=== PATIENT | female | born 1950 | race Caucasian/White ===

== ENCOUNTER → 2016-07-10 | Day surgery (SDC) | payer MEDICARE, SELFPAY ==
[~2016-07-10] VITALS: Ht 165.1 cm; Wt 73.0 kg
[~2016-07-10] MED LIST: ASPIRIN325 MG PO; CARAFATE 1 GM TA1 GM PO; CARDURA 2MG TAB2 MG PO; FUROSEMIDE40 MG PO; GLUCOTROL 10 MG10 MG PO; HYDRALAZINE HCL50 MG PO; IMODIUM CAP 2 MG2 MG PO; K-DUR TAB 20 M20 MEQ PO; LAMICTAL25 MG PO; LISINOPRIL40 MG PO; MEDROL4 MG PO; METFORMIN HCL1000 MG PO; MOBIC7.5 MG PO; NORVASC 5 MG TAB5 MG PO; PROTONIX40 MG PO; SYMBICORT 16010.2 GM INH; TENORMIN 50 MG50 MG PO; ZANTAC150 MG PO; ZYPREXA10 MG PO
== END | disposition home or self-care (01) ==
LOC: OR 07:10
PROVIDERS: Internal Medicine Gastroenterology
PROC: 0DB68ZX Excision of Stomach, Via Natural or Artificial Opening Endoscopic, Diagnostic (ICD-10-PCS; principal; 2016-07-10 12:15)
DX: K29.50 Unspecified chronic gastritis without bleeding (principal); K44.9 Diaphragmatic hernia without obstruction or gangrene; K21.9 Gastro-esophageal reflux disease without esophagitis; I10 Essential (primary) hypertension; E11.9 Type 2 diabetes mellitus without complications; I73.9 Peripheral vascular disease, unspecified; J44.9 Chronic obstructive pulmonary disease, unspecified; G89.29 Other chronic pain; M54.9 Dorsalgia, unspecified; M19.90 Unspecified osteoarthritis, unspecified site; F41.9 Anxiety disorder, unspecified; F17.210 Nicotine dependence, cigarettes, uncomplicated; Z82.49 Family history of ischemic heart disease and other diseases of the circulatory system; Z88.0 Allergy status to penicillin; Z95.810 Presence of automatic (implantable) cardiac defibrillator; Z90.49 Acquired absence of other specified parts of digestive tract; Z90.710 Acquired absence of both cervix and uterus
CPT/HCPCS: 82962; J2250; J3010; J7030

== ENCOUNTER 2016-07-24 15:06 | Emergency (ER) | payer MEDICARE, SELFPAY ==
[~2016-07-24 15:06] MED LIST changes: -ASPIRIN325 MG PO; -MEDROL4 MG PO; -MOBIC7.5 MG PO
[2016-08-09] MEDS ORDERED: ASPIRIN325 MG PO (08:52)
[2016-08-09] MEDS ORDERED: MOBIC7.5 MG PO (08:52)
[2016-08-09] MEDS ORDERED: MEDROL4 MG PO (08:53)
== END 2016-07-24 16:28 | disposition home or self-care (01) ==
LOC: ER1 15:06
DX: J40 Bronchitis, not specified as acute or chronic (principal); I10 Essential (primary) hypertension; E11.9 Type 2 diabetes mellitus without complications; F17.210 Nicotine dependence, cigarettes, uncomplicated; Z88.0 Allergy status to penicillin; Z90.49 Acquired absence of other specified parts of digestive tract
CPT/HCPCS: 87081; 87880; 99283

== ENCOUNTER → 2016-08-09 | Day surgery (SDC) | payer MEDICARE, SELFPAY ==
[~2016-08-09] VITALS: Ht 165.1 cm; Wt 73.0 kg
[~2016-08-09] MED LIST changes: +ASPIRIN325 MG PO; +MEDROL4 MG PO; +MOBIC7.5 MG PO
== END | disposition home or self-care (01) ==
LOC: OR 07:51
PROVIDERS: Internal Medicine Gastroenterology
PROC: 0DJD8ZZ Inspection of Lower Intestinal Tract, Via Natural or Artificial Opening Endoscopic (ICD-10-PCS; principal; 2016-08-09 12:30)
DX: K52.9 Noninfective gastroenteritis and colitis, unspecified (principal); F17.210 Nicotine dependence, cigarettes, uncomplicated; E11.9 Type 2 diabetes mellitus without complications; I10 Essential (primary) hypertension; Z88.0 Allergy status to penicillin; Z87.19 Personal history of other diseases of the digestive system; M19.90 Unspecified osteoarthritis, unspecified site; Z86.69 Personal history of other diseases of the nervous system and sense organs; Z90.710 Acquired absence of both cervix and uterus; Z90.49 Acquired absence of other specified parts of digestive tract; Z98.49 Cataract extraction status, unspecified eye; Z95.0 Presence of cardiac pacemaker; Z79.891 Long term (current) use of opiate analgesic; Z79.82 Long term (current) use of aspirin; Z79.899 Other long term (current) drug therapy
CPT/HCPCS: J2250; J7030

== ENCOUNTER → 2016-08-21 | Outpatient (CLI) | payer MEDICARE, SELFPAY | LOC: HEART 5 15:34 | DX: I25.10 Atherosclerotic heart disease of native coronary artery without angina pectoris (principal); R93.8 Abnormal findings on diagnostic imaging of other specified body structures; R27.0 Ataxia, unspecified; I70.212 Atherosclerosis of native arteries of extremities with intermittent claudication, left leg; R07.89 Other chest pain; Z95.810 Presence of automatic (implantable) cardiac defibrillator; I42.2 Other hypertrophic cardiomyopathy; J44.9 Chronic obstructive pulmonary disease, unspecified; F17.210 Nicotine dependence, cigarettes, uncomplicated; R94.2 Abnormal results of pulmonary function studies | CPT/HCPCS: 94060 ==

== ENCOUNTER → 2016-09-10 | Outpatient (CLI) | payer MEDICARE | LOC: CT 14:17 | DX: F17.210 Nicotine dependence, cigarettes, uncomplicated (principal) | CPT/HCPCS: G0297 ==

== ENCOUNTER → 2016-09-25 | Outpatient (CLI) | payer MEDICARE | LOC: CT 09-24 10:30 | DX: R10.11 Right upper quadrant pain (principal); K55.9 Vascular disorder of intestine, unspecified; K59.09 Other constipation | CPT/HCPCS: 36415; 82565; 84520; Q9963 ==

== ENCOUNTER → 2016-10-10 | Outpatient (CLI) | payer MEDICARE, OTHER | LOC: CT 09-28 08:30 | DX: R10.11 Right upper quadrant pain (principal); K55.9 Vascular disorder of intestine, unspecified; K59.09 Other constipation; N28.1 Cyst of kidney, acquired; I70.8 Atherosclerosis of other arteries | CPT/HCPCS: J7050; Q9963 ==

== ENCOUNTER → 2020-05-27 | Outpatient (CLI) | payer MEDICARE ==
[~2020-05-27] MED LIST changes: +AMIODARONE HCL200 MG PO; +ANTIVERT 12.512.5 MG PO; +ASPIRIN EC81 MG PO; +CARDIZEM CD240 MG PO; +CARDURA4 MG PO; +CEFDINIR300 MG PO; +CEFUROXIME500 MG PO; +COLACE100 MG PO; +COUMADIN 5MG TAB5 MG PO; +COUMADIN5 MG PO; +DOLOBID 500 MG500 MG PO; +DOXAZOSIN MESYLA4 MG PO; +DOXYCYCLINE HY100 MG PO; +ELIQUIS 5 MG TAB5 MG PO; +FEOSOL325 MG PO; +FERROUS SULFAT325 M2 PO; +FLAGYL500 MG PO; +FLEXERIL 10 MG10 MG PO; +FLONASE 0.05% N16 GM; +FLORANEX GRANU1 EACH PO; -FUROSEMIDE40 MG PO; +GLUCOPHAGE XR500 MG PO; +GLUCOPHAGE500 MG PO; -GLUCOTROL 10 MG10 MG PO; +GLUCOTROL5 MG PO; +IPRATROPIU0.2 MG/1 M NEB; +K-TAB ER10 MEQ PO; +K-TAB ER20 MEQ PO; +KLOR-CON M2020 MEQ PO; +LASIX 40 MG TAB40 MG PO; +LASIX20 MG PO; +LASIX40 MG PO; +LEVALBUTER0.63 MG/3 NEB; +LEVAQUIN500 MG PO; +LOPRESSOR 50 MG50 MG PO; +MECLIZINE HCL25 MG PO; +NAPROXEN 250 M250 MG PO; +NICOTINE PATCH1 EAC1 TD; +NICOTINE PATCH1 EAC2 TD; +NITROSTAT 0.40.4 MG SL; +NITROSTAT0.4 MG SL; +NORVASC10 MG PO; +NORVASC5 MG PO; +OMNICEF 300 MG300 MG PO; +PREDNISONE 50 M50 MG PO; +TOUJEO SC; +TYLENOL 500 MG500 MG PO; +TYLENOL325 M1 PO; +TYLENOL325 MG PO; +ULTRACET TABLE1 EACH PO; +ULTRAM50 MG PO; +VANCOMYCIN HCL125 MG PO; +VENTOLIN HFA 66.7 GM INH; +VIBRAMYCIN100 MG PO; +VIBRAMYCIN50 MG/5 ML PO; +ZESTRIL40 MG PO; +ZITHROMAX500 MG PO; +ZOFRAN4 MG PO
[2020-05-27 10:38] LABS: HEMOGLOBIN 9.3 gm/dl (12.3-15.3); RED BLOOD COUNT 3.43 M/UL (4.00-5.10); WHITE BLOOD COUNT 7.2 K/UL (4.5-11.0)
[2020-05-27 11:13] LABS: BUN/CREATININE RATIO 16 (0-10)
[2020-05-28 10:13] LABS: CREATININE, URINE 58.3 mg/dL (Not Estab.)
[2020-05-30 13:10] LABS: CHOLESTEROL, TOTAL 108 mg/dL (100-199); HDL SIZE 9.8 nm (>=9.2); HDL-C 39 mg/dL (>39); HDL-P (TOTAL) 21.7 umol/L (>=30.5); LARGE HDL-P 6.4 umol/L (>=4.8); LARGE VLDL-P 2.7 nmol/L (<=2.7); LDL SIZE 20.2 nm (>20.5); LDL SIZE 20.2 nm (>=20.8); LDL-C 52 mg/dL (0-99); LDL-P 770 nmol/L (<1000); LP-IR SCORE 43 (<=45); SMALL LDL-P 550 nmol/L (<=527); TRIGLYCERIDES 88 mg/dL (0-149); VLDL SIZE 48.8 nm (<=46.6)
== END ==
LOC: LAB 10:15
PROVIDERS: Emergency Medicine
DX: D50.9 Iron deficiency anemia, unspecified (principal); A04.72 Enterocolitis due to Clostridium difficile, not specified as recurrent; E11.65 Type 2 diabetes mellitus with hyperglycemia; E11.69 Type 2 diabetes mellitus with other specified complication; E27.8 Other specified disorders of adrenal gland; E55.9 Vitamin D deficiency, unspecified; E78.2 Mixed hyperlipidemia; F17.218 Nicotine dependence, cigarettes, with other nicotine-induced disorders; F41.1 Generalized anxiety disorder; G25.0 Essential tremor; G44.89 Other headache syndrome; G56.03 Carpal tunnel syndrome, bilateral upper limbs; G89.4 Chronic pain syndrome; H81.13 Benign paroxysmal vertigo, bilateral; H81.393 Other peripheral vertigo, bilateral; H81.4 Vertigo of central origin; H92.02 Otalgia, left ear; H93.13 Tinnitus, bilateral; I25.10 Atherosclerotic heart disease of native coronary artery without angina pectoris; I27.29 Other secondary pulmonary hypertension; I42.2 Other hypertrophic cardiomyopathy; I47.2 Ventricular tachycardia; I48.20 Chronic atrial fibrillation, unspecified; I11.0 Hypertensive heart disease with heart failure; I50.32 Chronic diastolic (congestive) heart failure; I73.89 Other specified peripheral vascular diseases; J01.00 Acute maxillary sinusitis, unspecified
CPT/HCPCS: 36415; 80053; 82043; 82570; 83036; 84443; 84550; 85025

== ENCOUNTER 2020-07-18 12:48 | Emergency (ER) | payer MEDICARE, SELFPAY ==
[~2020-07-18 12:48] MED LIST changes: -FLAGYL500 MG PO; -VIBRAMYCIN50 MG/5 ML PO
== END 2020-07-18 14:35 | disposition home or self-care (01) ==
LOC: ER1 12:48
DX: R07.89 Other chest pain (principal); E11.9 Type 2 diabetes mellitus without complications; J44.9 Chronic obstructive pulmonary disease, unspecified; I11.9 Hypertensive heart disease without heart failure; F17.200 Nicotine dependence, unspecified, uncomplicated; Z90.49 Acquired absence of other specified parts of digestive tract; Z90.89 Acquired absence of other organs; Z90.710 Acquired absence of both cervix and uterus; Z88.0 Allergy status to penicillin
CPT/HCPCS: 71046; 96372; 99284; J1885

== ENCOUNTER 2020-08-08 19:15 | Emergency (ER) | payer MEDICARE, SELFPAY ==
[2020-08-08 21:37] LABS: HEMOGLOBIN 8.7 gm/dl (12.3-15.3); RED BLOOD COUNT 3.28 M/UL (4.00-5.10)
[2020-08-08 22:02] LABS: BUN/CREATININE RATIO 30 (0-10)
[2020-08-09] MEDS ORDERED: OMNICEF 300 MG300 MG PO (01:43)
[2020-08-09] MEDS ORDERED: VIBRAMYCIN100 MG PO (01:43)
[2020-08-09] MEDS ORDERED: FLAGYL500 MG PO (01:43)
== END 2020-08-09 00:14 | disposition left against medical advice (07) ==
LOC: ER1 19:15
PROVIDERS: Emergency Medicine
DX: A41.9 Sepsis, unspecified organism (principal); R65.20 Severe sepsis without septic shock; J18.9 Pneumonia, unspecified organism; I63.9 Cerebral infarction, unspecified; I48.91 Unspecified atrial fibrillation; J44.9 Chronic obstructive pulmonary disease, unspecified; Z20.822 Contact with and (suspected) exposure to COVID-19; I10 Essential (primary) hypertension; F17.210 Nicotine dependence, cigarettes, uncomplicated; E11.9 Type 2 diabetes mellitus without complications; Z88.0 Allergy status to penicillin
CPT/HCPCS: 0240U; 36600; 51701; 70450; 71045; 80053; 81001; 82140; 82550; 82553; 82803; 83605; 83690; 83735; 83874; 83880; 84484; 85025; 87040; 93005; 94664; 96365; 96366; 96368; 96375; 96376; 99285; J0692; J2930; J7030

== ENCOUNTER 2020-08-12 14:44 | Emergency (ER) | payer MEDICARE, SELFPAY ==
[~2020-08-12 14:44] MED LIST changes: +FLAGYL500 MG PO
[2020-08-12 18:09] LABS: BUN/CREATININE RATIO 46 (0-10)
[2020-08-12 18:12] LABS: HEMOGLOBIN 8.3 gm/dl (12.3-15.3); RED BLOOD COUNT 3.26 M/UL (4.00-5.10); WHITE BLOOD COUNT 8.1 K/UL (4.5-11.0)
== END 2020-08-12 23:34 | disposition short-term general hospital (02) ==
LOC: ER1 14:44
PROVIDERS: Preventive Medicine Occupational Medicine
DX: I11.0 Hypertensive heart disease with heart failure (principal); I50.9 Heart failure, unspecified; I48.91 Unspecified atrial fibrillation; E87.6 Hypokalemia; I63.9 Cerebral infarction, unspecified; Z20.822 Contact with and (suspected) exposure to COVID-19; E11.9 Type 2 diabetes mellitus without complications; J44.9 Chronic obstructive pulmonary disease, unspecified; I25.10 Atherosclerotic heart disease of native coronary artery without angina pectoris
CPT/HCPCS: 0240U; 36600; 70450; 71045; 80053; 81001; 82550; 82553; 82803; 83605; 83690; 83735; 83874; 83880; 84484; 85025; 85610; 85652; 85730; 86140; 87086; 93005; 96365; 96375; 96376; 99285; J1335; J3480; J7030

== ENCOUNTER 2020-10-22 14:45 | Emergency (ER) | payer MEDICARE, OTHER | END 2020-10-22 18:22 | disposition home or self-care (01) | LOC: ER1 14:45 | DX: S09.90XA Unspecified injury of head, initial encounter (principal); J44.9 Chronic obstructive pulmonary disease, unspecified; E11.9 Type 2 diabetes mellitus without complications; I50.9 Heart failure, unspecified; Z86.73 Personal history of transient ischemic attack (TIA), and cerebral infarction without residual deficits; W06.XXXA Fall from bed, initial encounter | CPT/HCPCS: 70450; 99284 ==

== ENCOUNTER 2020-11-18 18:16 | Emergency (ER) | payer MEDICARE, OTHER ==
[~2020-11-18 18:16] MED LIST changes: -GLUCOPHAGE500 MG PO
[2020-11-18 19:22] LABS: RED BLOOD COUNT 3.82 M/UL (4.00-5.10); WHITE BLOOD COUNT 9.6 K/UL (4.5-11.0)
[2020-11-18 19:45] LABS: BUN/CREATININE RATIO 28 (0-10)
[2020-11-18] MEDS ORDERED: VIBRAMYCIN50 MG/5 ML PO (22:05)
[2020-11-19 21:00] LABS: ACINETOBACTER BAUMANNII Not Detected (Negative); CANDIDA ALBICANS Not Detected (Negative); CANDIDA KRUSEI Not Detected (Negative); CANDIDA TROPICALIS Not Detected (Negative); ENTEROCOCCUS Not Detected (Negative); ESCHERICHIA COLI Not Detected (Negative); HAEMOPHILUS INFLUENZAE Not Detected (Negative); KLEBSIELLA OXYTOCA Not Detected (Negative); KLEBSIELLA PNEUMONIAE Not Detected (Negative); KPC-CARBAPENEM-RESISTANCE GENE Not Detected (Negative); PROTEUS Not Detected (Negative); PSEUDOMONAS AERUGINOSA Not Detected (Negative); SERRATIA MARCESANS Not Detected (Negative); STAPHYLOCOCCUS AUREUS Not Detected (Negative); STREP AGALACTIAE (GROUP B) Not Detected (Negative); STREP PYOGENES (GROUP A) Not Detected (Negative); STREPTOCOCCUS Not Detected (Negative); vanA/B (VANCOMYCIN RESIST GENE Not Detected (Negative)
[2020-11-19 22:58] LABS: mecA (METHICILLIN RESIST GENE DETECTED (Negative)
[2020-11-19 23:00] LABS: STAPHYLOCOCCUS DETECTED (Negative)
== END 2020-11-19 00:49 | disposition home or self-care (01) ==
LOC: ER1 18:16
PROVIDERS: Emergency Medicine
DX: J18.9 Pneumonia, unspecified organism (principal); E11.9 Type 2 diabetes mellitus without complications; I11.0 Hypertensive heart disease with heart failure; I50.9 Heart failure, unspecified; I48.91 Unspecified atrial fibrillation; K21.9 Gastro-esophageal reflux disease without esophagitis
CPT/HCPCS: 71045; 80053; 81001; 82550; 82553; 83605; 83690; 84484; 85025; 87040; 87077; 87150; 87186; 93005; 99285

== ENCOUNTER 2020-12-17 10:11 | Emergency (ER) | payer MEDICARE, OTHER ==
[~2020-12-17 10:11] MED LIST changes: +VIBRAMYCIN50 MG/5 ML PO
== END 2020-12-17 13:59 | disposition home or self-care (01) ==
LOC: ER1 10:11
DX: Z46.59 Encounter for fitting and adjustment of other gastrointestinal appliance and device (principal); J44.9 Chronic obstructive pulmonary disease, unspecified; I48.91 Unspecified atrial fibrillation; Z79.899 Other long term (current) drug therapy
CPT/HCPCS: 74018; 96372; 99283; J2270; Q9963

== ENCOUNTER 2020-12-24 11:10 | Emergency (ER) | payer MEDICARE, OTHER ==
[2020-12-24 11:52] LABS: HEMOGLOBIN 9.9 gm/dl (12.3-15.3); RED BLOOD COUNT 3.65 M/UL (4.00-5.10); WHITE BLOOD COUNT 7.8 K/UL (4.5-11.0)
[2020-12-24] MEDS ORDERED: MACROBID 100 M100 MG PO (15:53)
== END 2020-12-24 17:20 | disposition home or self-care (01) ==
LOC: ER1 11:10
DX: R10.9 Unspecified abdominal pain (principal); R11.0 Nausea; Z20.822 Contact with and (suspected) exposure to COVID-19; I48.91 Unspecified atrial fibrillation; Z86.73 Personal history of transient ischemic attack (TIA), and cerebral infarction without residual deficits; I10 Essential (primary) hypertension; E11.9 Type 2 diabetes mellitus without complications; Z90.49 Acquired absence of other specified parts of digestive tract; Z90.89 Acquired absence of other organs; Z90.710 Acquired absence of both cervix and uterus; Z99.81 Dependence on supplemental oxygen
CPT/HCPCS: 71045; 80053; 81001; 82550; 82553; 83690; 83874; 84484; 85025; 93005; 99285; J2405; J7120; U0002

== ENCOUNTER 2020-12-25 00:36 | Inpatient (IN) | payer MEDICARE, OTHER ==
[~2020-12-25] VITALS: Ht 165.1 cm; Wt 50.8 kg
[~2020-12-25 00:36] MED LIST changes: +MACROBID 100 M100 MG PO
[2020-12-25 01:38] LABS: HEMOGLOBIN 10.4 gm/dl (12.3-15.3); RED BLOOD COUNT 3.8 M/UL (4.00-5.10)
[2020-12-25 01:41] LABS: WHITE BLOOD COUNT 10.7 K/UL (4.5-11.0)
--- NOTE | 2020-12-26 00:14 | NUR ---
UPON TRYING TO OBTAIN PT MED LIST, CURRENT RESIDENCE IN CHART IS [facility] AT 0001 STATED WAS NOT A RESIDENT AT THEIR [facility].
[2020-12-26 07:42] LABS: HEMOGLOBIN 8.7 gm/dl (12.3-15.3); WHITE BLOOD COUNT 8.3 K/UL (4.5-11.0)
[2020-12-26 07:54] LABS: RED BLOOD COUNT 3.33 M/UL (4.00-5.10)
[2020-12-26] MEDS ORDERED: DESYREL 50 MG T50 MG PO (07:56)
[2020-12-26] MEDS ORDERED: LEXAPRO10 MG PO (07:58)
[2020-12-26] MEDS ORDERED: ARICEPT5 MG PO (08:02)
[2020-12-26] MEDS ORDERED: PACERONE200 MG PO (09:33)
[2020-12-26] MEDS ORDERED: LOPRESSOR50 MG PO (09:35)
[2020-12-26] MEDS ORDERED: ATENOLOL100 MG PO (09:35)
[2020-12-26] MEDS ORDERED: NORVASC5 MG PO (10:06)
[2020-12-26] MEDS ORDERED: FUROSEMIDE40 MG PO (10:06)
[2020-12-26] MEDS ORDERED: GLUCOPHAGE 500500 MG PO (13:01)
[2020-12-26] MEDS ORDERED: K-TAB ER20 MEQ PO (16:33)
[2020-12-27 07:48] LABS: HEMOGLOBIN 8.9 gm/dl (12.3-15.3); RED BLOOD COUNT 3.43 M/UL (4.00-5.10); WHITE BLOOD COUNT 7.1 K/UL (4.5-11.0)
[2020-12-27 08:13] LABS: BUN/CREATININE RATIO 20 (0-10)
[2020-12-28] MEDS ORDERED: INVANZ 1 GM VIAL1 GM IM (11:06)
== END 2020-12-28 14:50 | disposition home health service (06) | DRG 689 ==
LOC: ER1 00:36 → CDU 08:32 → MED SURG 4 08:32
PROVIDERS: Emergency Medicine; Internal Medicine Infectious Disease; Physician Assistant Medical; ADMIT Internal Medicine
PROC: B24BZZ4 Ultrasonography of Heart with Aorta, Transesophageal (ICD-10-PCS; principal; 2020-12-26)
DX: N30.00 Acute cystitis without hematuria (principal); G93.41 Metabolic encephalopathy; G45.9 Transient cerebral ischemic attack, unspecified; J96.11 Chronic respiratory failure with hypoxia; N17.9 Acute kidney failure, unspecified; I50.32 Chronic diastolic (congestive) heart failure; I42.2 Other hypertrophic cardiomyopathy; I13.0 Hypertensive heart and chronic kidney disease with heart failure and stage 1 through stage 4 chronic kidney disease, or unspecified chronic kidney disease; Z16.12 Extended spectrum beta lactamase (ESBL) resistance; G81.91 Hemiplegia, unspecified affecting right dominant side; Z20.822 Contact with and (suspected) exposure to COVID-19; J44.9 Chronic obstructive pulmonary disease, unspecified; I48.0 Paroxysmal atrial fibrillation; F17.210 Nicotine dependence, cigarettes, uncomplicated; I11.0 Hypertensive heart disease with heart failure; K58.9 Irritable bowel syndrome, unspecified; I27.20 Pulmonary hypertension, unspecified; D63.8 Anemia in other chronic diseases classified elsewhere; B96.20 Unspecified Escherichia coli [E. coli] as the cause of diseases classified elsewhere; E87.6 Hypokalemia; I48.91 Unspecified atrial fibrillation; Z79.01 Long term (current) use of anticoagulants; Z79.82 Long term (current) use of aspirin; Z90.49 Acquired absence of other specified parts of digestive tract; Z88.0 Allergy status to penicillin; Z95.810 Presence of automatic (implantable) cardiac defibrillator; Z90.710 Acquired absence of both cervix and uterus
CPT/HCPCS: ECHO; 36415; 51702; 70450; 71045; 74230; 80048; 80053; 81001; 82550; 82553; 83605; 83690; 83735; 83874; 84100; 84132; 84439; 84443; 84484; 85025; 85027; 85610; 85730; 87040; 87077; 87086; 87186; 92610; 92611-GN; 93005; 93306; 93880; 96374; 96375; 96376; 97110; 97110-GP-CQ; 97116-GP-CQ; 97162; 97167; 99285; G0378; J0696; J1335; J2405; J2550; J3475; U0002

== ENCOUNTER 2021-01-15 11:51 | Emergency (ER) | payer MEDICARE ==
[~2021-01-15 11:51] MED LIST changes: +ARICEPT5 MG PO; +ATENOLOL100 MG PO; +DESYREL 50 MG T50 MG PO; +FUROSEMIDE40 MG PO; +GLUCOPHAGE 500500 MG PO; +INVANZ 1 GM VIAL1 GM IM; +LEXAPRO10 MG PO; +LOPRESSOR50 MG PO; +PACERONE200 MG PO
[2021-01-15 13:10] LABS: HEMOGLOBIN 9.6 gm/dl (12.3-15.3); RED BLOOD COUNT 3.71 M/UL (4.00-5.10)
== END 2021-01-15 19:55 | disposition home or self-care (01) ==
LOC: ER1 11:51
PROVIDERS: Physician Assistant Medical
DX: I10 Essential (primary) hypertension (principal); E11.9 Type 2 diabetes mellitus without complications; Z90.49 Acquired absence of other specified parts of digestive tract; Z90.710 Acquired absence of both cervix and uterus; Z88.0 Allergy status to penicillin
CPT/HCPCS: 71045; 80053; 81001; 82550; 82553; 83874; 84484; 85025; 99284

== ENCOUNTER 2021-01-26 16:46 | Inpatient (IN) | payer MEDICARE, OTHER ==
[~2021-01-26] VITALS: Ht 160 cm; Wt 53.5 kg
[~2021-01-26 16:46] MED LIST changes: -ARICEPT5 MG PO; -LOPRESSOR50 MG PO
[2021-01-26] MEDS ORDERED: ZOFRAN 4 MG TAB4 MG PO (17:38)
[2021-01-26] MEDS ORDERED: TRAMADOL HCL50 MG PO (17:39)
[2021-01-26 18:41] LABS: HEMOGLOBIN 9.9 gm/dl (12.3-15.3); RED BLOOD COUNT 3.6 M/UL (4.00-5.10); WHITE BLOOD COUNT 12.1 K/UL (4.5-11.0)
[2021-01-27 07:01] LABS: HEMOGLOBIN 10.6 gm/dl (12.3-15.3); RED BLOOD COUNT 3.9 M/UL (4.00-5.10); WHITE BLOOD COUNT 15.6 K/UL (4.5-11.0)
[2021-01-27] MEDS ORDERED: ARICEPT10 MG PO (08:02)
[2021-01-27] MEDS ORDERED: LOPRESSOR 25 MG25 MG PO (09:35)
[2021-01-27] MEDS ORDERED: NORVASC10 MG PO (10:06)
[2021-01-27] MEDS ORDERED: K-TAB ER20 MEQ PO (16:33)
[2021-01-27] MEDS ORDERED: FERROCITE324 MG PO (17:40)
[2021-01-28 05:53] LABS: HEMOGLOBIN 8.4 gm/dl (12.3-15.3); RED BLOOD COUNT 3.08 M/UL (4.00-5.10); WHITE BLOOD COUNT 14.5 K/UL (4.5-11.0)
--- NOTE | 2021-01-28 09:44 | NUR ---
Notified Dr. Renner about pts. K+ being 3.2 he stated to give 40 meq of PO K+ and to not worry about K+ replacement protocol at this time
--- NOTE | 2021-01-29 04:26 | NUR ---
PT HEART RATE 140'S. NOTIFIED MD AND RECIEVED ORDERS. WILL CONTINUE TO MONITOR.
[2021-01-29 06:48] LABS: HEMOGLOBIN 8.4 gm/dl (12.3-15.3); RED BLOOD COUNT 3.03 M/UL (4.00-5.10); WHITE BLOOD COUNT 11.3 K/UL (4.5-11.0)
--- NOTE | 2021-01-29 17:45 | NUR ---
Notified Dr. Renner about patients potassium being 3.3 this AM, he stated earlier to just give another 40 of potassium PO.
[2021-01-30 06:22] LABS: HEMOGLOBIN 7.4 gm/dl (12.3-15.3)
[2021-01-30 06:28] LABS: RED BLOOD COUNT 2.66 M/UL (4.00-5.10)
[2021-01-31 08:03] LABS: RED BLOOD COUNT 2.57 M/UL (4.00-5.10); WHITE BLOOD COUNT 12.1 K/UL (4.5-11.0)
[2021-01-31 18:55] LABS: ADENOVIRUS F 40/41 Not Detected (Negative); ASTROVIRUS Not Detected (Negative); CAMPYLOBACTER Not Detected (Negative); CRYPTOSPORIDIUM Not Detected (Negative); E.COLI 0157 Not Detected (Negative); ENTAMOEBA HISTOLYTICA Not Detected (Negative); ENTEROAGGREGATIVE E.COLI (EAEC Not Detected (Negative); ENTEROPATHOGENIC E.COLI (EPEC) Not Detected (Negative); ENTEROTOXIGENIC E.COLI (ETEC) Not Detected (Negative); GIARDIA LAMBLIA Not Detected (Negative); NOROVIRUS GI/GII Not Detected (Negative); PLESIOMONAS SHIGELLOIDES Not Detected (Negative); ROTOVIRUS A Not Detected (Negative); SALMONELLA Not Detected (Negative); SAPOVIRUS Not Detected (Negative); SHIG/ENTEROINVAS.ECOLI (EIEC) Not Detected (Negative); SHIGA-LIK TOX.PRO.E.COLI (STEC Not Detected (Negative); VIBRIO Not Detected (Negative); VIBRIO CHOLERAE Not Detected (Negative); YERSINIA ENTEROCOLITICA Not Detected (Negative)
[2021-02-01 08:25] LABS: HEMOGLOBIN 8.5 gm/dl (12.3-15.3); RED BLOOD COUNT 3.07 M/UL (4.00-5.10); WHITE BLOOD COUNT 10.1 K/UL (4.5-11.0)
[2021-02-01 08:57] LABS: CLOSTRIDIUM DIFFICILE TOX A/B DETECTED (Negative)
[2021-02-01] MEDS ORDERED: VANCOCIN 125MG/2.5ML PO (12:43)
== END 2021-02-01 13:59 | disposition home health service (06) | DRG 371 ==
LOC: ER1 16:46 → M/S 20:49 → CDU 20:49 → M/S 01-27 02:30
PROVIDERS: Internal Medicine; Nurse Practitioner; Physician Assistant; ADMIT Internal Medicine
DX: A04.72 Enterocolitis due to Clostridium difficile, not specified as recurrent (principal); K85.90 Acute pancreatitis without necrosis or infection, unspecified; N17.9 Acute kidney failure, unspecified; R65.10 Systemic inflammatory response syndrome (SIRS) of non-infectious origin without acute organ dysfunction; I47.2 Ventricular tachycardia; I42.2 Other hypertrophic cardiomyopathy; E87.2 Acidosis; I50.42 Chronic combined systolic (congestive) and diastolic (congestive) heart failure; Z20.822 Contact with and (suspected) exposure to COVID-19; D63.1 Anemia in chronic kidney disease; E83.42 Hypomagnesemia; E87.6 Hypokalemia; E11.649 Type 2 diabetes mellitus with hypoglycemia without coma; E86.0 Dehydration; J44.9 Chronic obstructive pulmonary disease, unspecified; I48.0 Paroxysmal atrial fibrillation; K58.9 Irritable bowel syndrome, unspecified; I27.20 Pulmonary hypertension, unspecified; H54.40 Blindness, one eye, unspecified eye; K21.9 Gastro-esophageal reflux disease without esophagitis; I11.0 Hypertensive heart disease with heart failure; Z88.0 Allergy status to penicillin; Z90.710 Acquired absence of both cervix and uterus; Z79.82 Long term (current) use of aspirin; Z79.899 Other long term (current) drug therapy; Z95.810 Presence of automatic (implantable) cardiac defibrillator; Z90.49 Acquired absence of other specified parts of digestive tract; Z90.89 Acquired absence of other organs; Z98.890 Other specified postprocedural states
CPT/HCPCS: 36415; 70450; 71045; 80048; 80053; 81001; 82550; 82553; 82728; 82962; 83540; 83550; 83605; 83690; 83735; 83874; 84478; 84484; 85025; 85652; 86140; 87086; 87324; 87449; 87507; 96374; 96375; 97110; 97110-GP-CQ; 97162; 97167; 97530-GP-CQ; 99285; J0696; J2405; J3370; J3475; J3480; J7030; U0002

== ENCOUNTER 2021-02-10 14:27 | Emergency (ER) | payer MEDICARE ==
[~2021-02-10 14:27] MED LIST changes: +ARICEPT10 MG PO; +FERROCITE324 MG PO; +LOPRESSOR 25 MG25 MG PO; +TRAMADOL HCL50 MG PO; +VANCOCIN 125MG/2.5ML PO; +ZOFRAN 4 MG TAB4 MG PO
[2021-02-10 15:10] LABS: HEMOGLOBIN 9.7 gm/dl (12.3-15.3); RED BLOOD COUNT 3.5 M/UL (4.00-5.10); WHITE BLOOD COUNT 12.8 K/UL (4.5-11.0)
== END 2021-02-10 18:31 | disposition home or self-care (01) ==
LOC: ER1 14:27
PROVIDERS: Preventive Medicine Occupational Medicine
DX: E86.0 Dehydration (principal); J44.9 Chronic obstructive pulmonary disease, unspecified; E11.9 Type 2 diabetes mellitus without complications; I10 Essential (primary) hypertension; I48.91 Unspecified atrial fibrillation
CPT/HCPCS: 80048; 85025; 99284

== ENCOUNTER 2021-02-21 03:27 | Emergency (ER) | payer MEDICARE ==
[2021-02-21 03:51] LABS: HEMOGLOBIN 7.6 gm/dl (12.3-15.3); RED BLOOD COUNT 2.78 M/UL (4.00-5.10); WHITE BLOOD COUNT 8.5 K/UL (4.5-11.0)
[2021-02-21 04:30] LABS: BUN/CREATININE RATIO 20 (0-10)
[2021-02-21 09:10] LABS: HEMOGLOBIN 7.9 gm/dl (12.3-15.3)
== END 2021-02-21 13:15 | disposition home or self-care (01) ==
LOC: ER1 03:27
PROVIDERS: Emergency Medicine; Student in an Organized Health Care Education/Training Program
DX: R10.84 Generalized abdominal pain (principal); G89.29 Other chronic pain; D64.9 Anemia, unspecified; I48.91 Unspecified atrial fibrillation; E11.9 Type 2 diabetes mellitus without complications; K21.9 Gastro-esophageal reflux disease without esophagitis; Z86.73 Personal history of transient ischemic attack (TIA), and cerebral infarction without residual deficits; Z88.0 Allergy status to penicillin; Z79.1 Long term (current) use of non-steroidal anti-inflammatories (NSAID)
CPT/HCPCS: 70450; 80053; 82550; 82553; 83605; 83690; 83874; 84439; 84443; 84484; 85014; 85018; 85025; 93005; 99284; Q9967

== ENCOUNTER 2021-03-27 20:18 | Inpatient (IN) | payer MEDICARE, MEDICAID ==
[~2021-03-27] VITALS: Ht 162.6 cm; Wt 48.7 kg
[~2021-03-27 20:18] MED LIST changes: -DESYREL 50 MG T50 MG PO
[2021-03-27 23:27] LABS: HEMOGLOBIN 7.5 gm/dl (12.3-15.3); RED BLOOD COUNT 2.44 M/UL (4.00-5.10); WHITE BLOOD COUNT 11.4 K/UL (4.5-11.0)
[2021-03-28] MEDS ORDERED: DESYREL 50 MG T50 MG PO (07:56)
[2021-03-28] MEDS ORDERED: OLANZAPINE10 MG PO (10:41)
[2021-03-28] MEDS ORDERED: CONSTULOSE10 GM/15 M PO (10:43)
[2021-03-28] MEDS ORDERED: GLIPIZIDE5 MG PO (10:43)
[2021-03-28] MEDS ORDERED: METFORMIN HCL500 MG PO (10:43)
--- NOTE | 2021-03-28 13:00 | NUR ---
REPORT CALLED TO ISABEL ELLIS ON MED SURG. PT BEING TRANSFERRED TO ROOM 1261
[2021-03-29 03:01] LABS: HEMOGLOBIN 8.5 gm/dl (12.3-15.3); WHITE BLOOD COUNT 11.7 K/UL (4.5-11.0)
[2021-03-29 03:04] LABS: RED BLOOD COUNT 2.76 M/UL (4.00-5.10)
[2021-03-30 05:50] LABS: HEMOGLOBIN 7.1 gm/dl (12.3-15.3)
[2021-03-30 05:51] LABS: RED BLOOD COUNT 2.29 M/UL (4.00-5.10); WHITE BLOOD COUNT 8.6 K/UL (4.5-11.0)
[2021-03-31 07:24] LABS: HEMOGLOBIN 7.2 gm/dl (12.3-15.3); RED BLOOD COUNT 2.35 M/UL (4.00-5.10)
[2021-03-31 07:25] LABS: WHITE BLOOD COUNT 12.2 K/UL (4.5-11.0)
[2021-04-01] MEDS ORDERED: ZYVOX600 MG PO (11:44)
[2021-04-02 08:03] LABS: WHITE BLOOD COUNT 12.8 K/UL (4.5-11.0)
[2021-04-02 08:05] LABS: RED BLOOD COUNT 2.01 M/UL (4.00-5.10)
--- NOTE | 2021-04-02 23:11 | NUR ---
CALLED JEFF PATIENT REPORTS CHEST TIGHNESS AND CURRENTLY GETTING 1 UNIT OF BLOOD @ 75. BUN: 25 CREATININE: 1.63 JEFF ADVISED TO CONTINUE WITH PRBC AND ADVISED TO NOTIFY IF WORSENING OF SYMPTOMS.
[2021-04-03 06:21] LABS: WHITE BLOOD COUNT 10.6 K/UL (4.5-11.0)
[2021-04-03 06:24] LABS: RED BLOOD COUNT 2.59 M/UL (4.00-5.10)
[2021-04-04 07:38] LABS: HEMOGLOBIN 7.8 gm/dl (12.3-15.3); RED BLOOD COUNT 2.64 M/UL (4.00-5.10); WHITE BLOOD COUNT 12.3 K/UL (4.5-11.0)
[2021-04-04] MEDS ORDERED: FERROCITE324 MG PO (17:06)
[2021-04-05] MEDS ORDERED: CEFEPIME 22 GM/100 M IV (12:14)
[2021-04-05] MEDS ORDERED: ZYVOX IV 6600 MG/300 INJ (12:14)
--- NOTE | 2021-04-05 16:49 | NUR ---
Spoke with Dr. Logan re: low GFR. Per conversation, no midline or PICC line will be placed at present time.
[2021-04-06 07:07] LABS: HEMOGLOBIN 8.1 gm/dl (12.3-15.3); RED BLOOD COUNT 2.68 M/UL (4.00-5.10); WHITE BLOOD COUNT 12.1 K/UL (4.5-11.0)
[2021-04-06] MEDS ORDERED: CEFEPIME 22 GM/100 M IV (12:36)
[2021-04-06] MEDS ORDERED: CEFEPIME-D2 GM/50 ML IV (13:36)
[2021-04-06] MEDS ORDERED: ZYVOX IV 6600 MG/300 IV (13:43)
--- NOTE | 2021-04-06 16:16 | NUR ---
CALLED PT TO INFORM HIM THAT PT WAS GOING TO [facility]
--- NOTE | 2021-04-06 17:26 | NUR ---
REPORT CALLED TO [facility]. [facility] NOTIFIED OF NEED FOR TRANSPORT. WCTM. AND DAUGHTER BOTH NOTIFIED.
== END 2021-04-06 18:03 | DRG 871 ==
LOC: ER1 20:18 → M/S 03-28 02:35 → PROG CARE 03-28 02:35 → CDU 03-28 02:35 → PROG CARE 03-28 03:51 → M/S 03-28 13:06
PROVIDERS: Family Medicine; Internal Medicine; Physician Assistant Medical; ADMIT Internal Medicine
DX: A41.81 Sepsis due to Enterococcus (principal); J18.9 Pneumonia, unspecified organism; J96.01 Acute respiratory failure with hypoxia; N30.00 Acute cystitis without hematuria; J90 Pleural effusion, not elsewhere classified; E44.0 Moderate protein-calorie malnutrition; E87.2 Acidosis; N17.9 Acute kidney failure, unspecified; J44.0 Chronic obstructive pulmonary disease with (acute) lower respiratory infection; R64 Cachexia; I42.2 Other hypertrophic cardiomyopathy; Z68.1 Body mass index [BMI] 19.9 or less, adult; A41.51 Sepsis due to Escherichia coli [E. coli]; E88.09 Other disorders of plasma-protein metabolism, not elsewhere classified; I48.0 Paroxysmal atrial fibrillation; E86.0 Dehydration; R33.9 Retention of urine, unspecified; D53.9 Nutritional anemia, unspecified; K58.1 Irritable bowel syndrome with constipation; K21.9 Gastro-esophageal reflux disease without esophagitis; R32 Unspecified urinary incontinence; I27.20 Pulmonary hypertension, unspecified; J20.9 Acute bronchitis, unspecified; H91.90 Unspecified hearing loss, unspecified ear; F03.90 Unspecified dementia, unspecified severity, without behavioral disturbance, psychotic disturbance, mood disturbance, and anxiety; I12.9 Hypertensive chronic kidney disease with stage 1 through stage 4 chronic kidney disease, or unspecified chronic kidney disease; N18.9 Chronic kidney disease, unspecified; Z79.899 Other long term (current) drug therapy; Z79.84 Long term (current) use of oral hypoglycemic drugs; Z79.82 Long term (current) use of aspirin; Z90.49 Acquired absence of other specified parts of digestive tract; Z90.710 Acquired absence of both cervix and uterus; Z90.89 Acquired absence of other organs; Z95.5 Presence of coronary angioplasty implant and graft; Z98.890 Other specified postprocedural states; Z88.0 Allergy status to penicillin; Z95.810 Presence of automatic (implantable) cardiac defibrillator; Z82.49 Family history of ischemic heart disease and other diseases of the circulatory system
CPT/HCPCS: 36415; 71045; 80048; 80053; 80202; 81001; 82550; 82553; 83605; 83690; 83735; 84439; 84443; 84484; 85025; 85027; 86850; 86870; 86900; 86901; 86902; 86920; 86922; 87040; 87077; 87086; 87186; 93005; 94640; 94664; 94760; 97110-GP-CQ; 97116-GP-CQ; 97161; 99285; C1751; J0692; J0696; J2020; J2185; J2405; J3370; J3486; J7030; J7050; J7070; P9016; U0002

== ENCOUNTER 2021-04-10 19:00 | Inpatient (IN) | payer MEDICARE, OTHER ==
[~2021-04-10] VITALS: Ht 157.5 cm; Wt 53.2 kg
[~2021-04-10 19:00] MED LIST changes: +CEFEPIME 22 GM/100 M IV; +CEFEPIME-D2 GM/50 ML IV; +CONSTULOSE10 GM/15 M PO; +DESYREL 50 MG T50 MG PO; +GLIPIZIDE5 MG PO; +METFORMIN HCL500 MG PO; +OLANZAPINE10 MG PO; +ZYVOX IV 6600 MG/300 INJ; +ZYVOX IV 6600 MG/300 IV; +ZYVOX600 MG PO
[2021-04-10 19:52] LABS: RED BLOOD COUNT 1.83 M/UL (4.00-5.10); WHITE BLOOD COUNT 11.7 K/UL (4.5-11.0)
[2021-04-10 20:03] LABS: HEMOGLOBIN 5.7 gm/dl (12.3-15.3)
[2021-04-11 09:28] LABS: WHITE BLOOD COUNT 11.6 K/UL (4.5-11.0)
[2021-04-11 09:29] LABS: HEMOGLOBIN 8.8 gm/dl (12.3-15.3); RED BLOOD COUNT 2.83 M/UL (4.00-5.10)
[2021-04-11] MEDS ORDERED: THERAGRAN M TAB1 EA PO (13:50)
[2021-04-11] MEDS ORDERED: ZOFRAN4 MG PO (13:52)
[2021-04-12 06:13] LABS: RED BLOOD COUNT 2.25 M/UL (4.00-5.10); WHITE BLOOD COUNT 8.3 K/UL (4.5-11.0)
--- NOTE | 2021-04-13 04:35 | NUR ---
PATIENT TURNS SELF
--- NOTE | 2021-04-13 05:00 | NUR ---
LATE ENTRY 03/13/21 2300 PATIENT HAD BOWEL MOVEMENT/FECES SOFT/BROWN; PT GIVEN BATH/PERICARE/BOO CARE, LINEN AND GOWN CHANGED, PATIENT ROLLS BY HERSELF; BUTTOCKS RED/BLANCHABLE, ROCKET SCIENTIST, NO EVIDENCE OF DTI NO OPEN AREAS, BUTTOCKS CLEAN/DRY
[2021-04-13 08:01] LABS: HEMOGLOBIN 9.4 gm/dl (12.3-15.3); RED BLOOD COUNT 3.16 M/UL (4.00-5.10)
[2021-04-14 03:52] LABS: HEMOGLOBIN 8.5 gm/dl (12.3-15.3); RED BLOOD COUNT 2.8 M/UL (4.00-5.10); WHITE BLOOD COUNT 11.8 K/UL (4.5-11.0)
[2021-04-15 07:13] LABS: WHITE BLOOD COUNT 10.4 K/UL (4.5-11.0)
[2021-04-15 07:18] LABS: HEMOGLOBIN 11.2 gm/dl (12.3-15.3); RED BLOOD COUNT 3.67 M/UL (4.00-5.10)
[2021-04-16 07:46] LABS: HEMOGLOBIN 9.2 gm/dl (12.3-15.3); RED BLOOD COUNT 3.1 M/UL (4.00-5.10)
[2021-04-17 08:18] LABS: HEMOGLOBIN 8.8 gm/dl (12.3-15.3); RED BLOOD COUNT 2.89 M/UL (4.00-5.10)
[2021-04-17 08:19] LABS: WHITE BLOOD COUNT 13.8 K/UL (4.5-11.0)
[2021-04-18 07:31] LABS: HEMOGLOBIN 7.8 gm/dl (12.3-15.3); RED BLOOD COUNT 2.66 M/UL (4.00-5.10); WHITE BLOOD COUNT 11.9 K/UL (4.5-11.0)
[2021-04-19 03:22] LABS: HEMOGLOBIN 8.2 gm/dl (12.3-15.3); RED BLOOD COUNT 2.68 M/UL (4.00-5.10)
[2021-04-20 04:55] LABS: HEMOGLOBIN 8.4 gm/dl (12.3-15.3); RED BLOOD COUNT 2.7 M/UL (4.00-5.10); WHITE BLOOD COUNT 11.9 K/UL (4.5-11.0)
[2021-04-21 06:43] LABS: HEMOGLOBIN 8.8 gm/dl (12.3-15.3); RED BLOOD COUNT 2.83 M/UL (4.00-5.10); WHITE BLOOD COUNT 10.5 K/UL (4.5-11.0)
[2021-04-22 07:11] LABS: WHITE BLOOD COUNT 8.8 K/UL (4.5-11.0)
[2021-04-22 07:20] LABS: RED BLOOD COUNT 2.54 M/UL (4.00-5.10)
[2021-04-22] MEDS ORDERED: COMBIVENT RESPIM4 GM INH (09:30)
== END 2021-04-22 14:52 | DRG 177 ==
LOC: ER1 19:00 → M/S 23:56 → CDU 23:56 → CCU 04-11 13:46 → PROG CARE 04-13 14:00 → M/S 04-17 19:29
PROVIDERS: Emergency Medicine; Internal Medicine; Internal Medicine Nephrology; ADMIT Internal Medicine
PROC: 30233N1 Transfusion of Nonautologous Red Blood Cells into Peripheral Vein, Percutaneous Approach (ICD-10-PCS; principal; 2021-04-11)
PROC: 0B9J8ZX Drainage of Left Lower Lung Lobe, Via Natural or Artificial Opening Endoscopic, Diagnostic (ICD-10-PCS; 2021-04-12)
PROC: 0B9H8ZX Drainage of Lung Lingula, Via Natural or Artificial Opening Endoscopic, Diagnostic (ICD-10-PCS; 2021-04-12)
PROC: 0BD78ZX Extraction of Left Main Bronchus, Via Natural or Artificial Opening Endoscopic, Diagnostic (ICD-10-PCS; 2021-04-12)
PROC: 5A0945A Assistance with Respiratory Ventilation, 24-96 Consecutive Hours, High Flow/Velocity Cannula (ICD-10-PCS; 2021-04-15)
DX: J15.6 Pneumonia due to other Gram-negative bacteria (principal); I50.33 Acute on chronic diastolic (congestive) heart failure; J80 Acute respiratory distress syndrome; I13.0 Hypertensive heart and chronic kidney disease with heart failure and stage 1 through stage 4 chronic kidney disease, or unspecified chronic kidney disease; N17.9 Acute kidney failure, unspecified; E87.0 Hyperosmolality and hypernatremia; J98.11 Atelectasis; G93.49 Other encephalopathy; J98.19 Other pulmonary collapse; T17.890A Other foreign object in other parts of respiratory tract causing asphyxiation, initial encounter; E87.4 Mixed disorder of acid-base balance; Z16.24 Resistance to multiple antibiotics; J44.9 Chronic obstructive pulmonary disease, unspecified; I48.0 Paroxysmal atrial fibrillation; E11.22 Type 2 diabetes mellitus with diabetic chronic kidney disease; K58.9 Irritable bowel syndrome, unspecified; E87.6 Hypokalemia; E83.42 Hypomagnesemia; I27.20 Pulmonary hypertension, unspecified; N18.32 Chronic kidney disease, stage 3b; K21.9 Gastro-esophageal reflux disease without esophagitis; D63.1 Anemia in chronic kidney disease; F03.90 Unspecified dementia, unspecified severity, without behavioral disturbance, psychotic disturbance, mood disturbance, and anxiety; Z95.810 Presence of automatic (implantable) cardiac defibrillator; Z88.5 Allergy status to narcotic agent; Z87.440 Personal history of urinary (tract) infections; Z88.0 Allergy status to penicillin; Z86.73 Personal history of transient ischemic attack (TIA), and cerebral infarction without residual deficits; Z99.81 Dependence on supplemental oxygen; Z79.01 Long term (current) use of anticoagulants; Z90.49 Acquired absence of other specified parts of digestive tract; Z90.710 Acquired absence of both cervix and uterus; Z98.890 Other specified postprocedural states; Z79.82 Long term (current) use of aspirin; Z79.899 Other long term (current) drug therapy; Z87.891 Personal history of nicotine dependence; Z82.49 Family history of ischemic heart disease and other diseases of the circulatory system
CPT/HCPCS: 36415; 36600; 70450; 71045; 71250; 80048; 80053; 80202; 81001; 82533; 82550; 82553; 82607; 82728; 82746; 82803; 82962; 83036; 83540; 83550; 83605; 83735; 83874; 83880; 84100; 84132; 84439; 84443; 84484; 85025; 85027; 85610; 85730; 86140; 86850; 86900; 86901; 86920; 86922; 87040; 87070; 87077; 87086; 87186; 87205; 93005; 94640; 94664; 94760; 96374; 97110-GP-CQ; 97162; 97530; 97530-GP-CQ; 99285; J0360; J0456; J0692; J1120; J1200; J1205; J1630; J1940; J2060; J2370; J3370; J3475; J3480; J7030; J7040; J7070; P9016; U0002

== ENCOUNTER 2021-05-03 18:38 | Emergency (ER) | payer MEDICARE ==
[~2021-05-03 18:38] MED LIST changes: +COMBIVENT RESPIM4 GM INH; +THERAGRAN M TAB1 EA PO
[2021-05-03 19:45] LABS: RED BLOOD COUNT 2.07 M/UL (4.00-5.10)
[2021-05-03 20:01] LABS: HEMOGLOBIN 6.3 gm/dl (12.3-15.3)
[2021-05-04 04:39] LABS: HEMOGLOBIN 9.3 gm/dl (12.3-15.3)
== END 2021-05-04 09:11 | disposition home or self-care (01) ==
LOC: ER1 18:38
PROVIDERS: Family Medicine
DX: D64.9 Anemia, unspecified (principal); N18.9 Chronic kidney disease, unspecified; J44.9 Chronic obstructive pulmonary disease, unspecified; Z86.73 Personal history of transient ischemic attack (TIA), and cerebral infarction without residual deficits; Z88.0 Allergy status to penicillin; Z88.5 Allergy status to narcotic agent; Z79.82 Long term (current) use of aspirin; Z79.01 Long term (current) use of anticoagulants
CPT/HCPCS: 36415; 36430; 71045; 80053; 82270; 85014; 85018; 85025; 85610; 86850; 86900; 86901; 86920; 93005; 99285; J1200; P9016

== ENCOUNTER 2021-05-11 13:56 | Inpatient (IN) | payer MEDICARE, MEDICAID ==
[~2021-05-11] VITALS: Ht 162.6 cm; Wt 50.1 kg
[~2021-05-11 13:56] MED LIST changes: +MULTIVITAMIN1 EACH PO; -THERAGRAN M TAB1 EA PO
[2021-05-11 14:17] LABS: HEMOGLOBIN 11.9 gm/dl (12.3-15.3); RED BLOOD COUNT 3.72 M/UL (4.00-5.10); WHITE BLOOD COUNT 11.3 K/UL (4.5-11.0)
[2021-05-12] MEDS ORDERED: ASPIRIN EC81 MG PO (11:50)
[2021-05-12] MEDS ORDERED: TYLENOL EXTRA500 MG PO (11:50)
[2021-05-12] MEDS ORDERED: COMBIVENT RESPIM4 GM INH (11:52)
[2021-05-12] MEDS ORDERED: FERROUS FUMARA324 MG PO (11:53)
[2021-05-12] MEDS ORDERED: SCALACORT29.6 ML TOP (11:55)
[2021-05-12] MEDS ORDERED: ONDANSETRON HCL4 MG PO (11:58)
[2021-05-13 03:23] LABS: HEMOGLOBIN 10.1 gm/dl (12.3-15.3)
[2021-05-13 03:24] LABS: RED BLOOD COUNT 3.19 M/UL (4.00-5.10)
[2021-05-15 04:27] LABS: WHITE BLOOD COUNT 9.9 K/UL (4.5-11.0)
[2021-05-15 04:29] LABS: HEMOGLOBIN 8.1 gm/dl (12.3-15.3); RED BLOOD COUNT 2.7 M/UL (4.00-5.10)
[2021-05-17 06:04] LABS: HEMOGLOBIN 8.9 gm/dl (12.3-15.3); RED BLOOD COUNT 2.84 M/UL (4.00-5.10); WHITE BLOOD COUNT 9.2 K/UL (4.5-11.0)
[2021-05-18 08:42] LABS: HEMOGLOBIN 9.5 gm/dl (12.3-15.3); RED BLOOD COUNT 3.02 M/UL (4.00-5.10)
[2021-05-18 08:47] LABS: WHITE BLOOD COUNT 15.4 K/UL (4.5-11.0)
[2021-05-19 07:34] LABS: HEMOGLOBIN 8.4 gm/dl (12.3-15.3)
[2021-05-19 07:45] LABS: RED BLOOD COUNT 2.62 M/UL (4.00-5.10)
[2021-05-20 10:56] LABS: HEMOGLOBIN 9.8 gm/dl (12.3-15.3); WHITE BLOOD COUNT 14.8 K/UL (4.5-11.0)
[2021-05-20 11:03] LABS: RED BLOOD COUNT 3.12 M/UL (4.00-5.10)
[2021-05-21 10:42] LABS: HEMOGLOBIN 9.2 gm/dl (12.3-15.3); RED BLOOD COUNT 2.96 M/UL (4.00-5.10); WHITE BLOOD COUNT 16.1 K/UL (4.5-11.0)
[2021-05-22 08:26] LABS: RED BLOOD COUNT 2.92 M/UL (4.00-5.10); WHITE BLOOD COUNT 13.4 K/UL (4.5-11.0)
[2021-05-23 08:33] LABS: HEMOGLOBIN 9.4 gm/dl (12.3-15.3); RED BLOOD COUNT 2.96 M/UL (4.00-5.10); WHITE BLOOD COUNT 13.9 K/UL (4.5-11.0)
[2021-05-23 22:06] LABS: RED BLOOD COUNT 2.82 M/UL (4.00-5.10); WHITE BLOOD COUNT 13.1 K/UL (4.5-11.0)
[2021-05-23 22:29] LABS: BUN/CREATININE RATIO 23 (0-10)
[2021-05-24 09:24] LABS: HEMOGLOBIN 8.8 gm/dl (12.3-15.3); RED BLOOD COUNT 2.82 M/UL (4.00-5.10); WHITE BLOOD COUNT 15.2 K/UL (4.5-11.0)
--- NOTE | 2021-05-24 17:39 | NUR ---
05/24/21 0800 PT WITH CONTINUED ECCHYMOSIS TO BILAT UPPER EXTREM, RASH CONT TO TRUNK, ARMS, ABD. PT DENIES ITCHING. LOTION APPLIED, BUTTOCKS PINK/BLANCHABLE WITH NO OPEN AREAS NOTED. PT WITH DENTURES, SEVERELY [place] BILATERALLY.
--- NOTE | 2021-05-24 17:42 | NUR ---
05/24/211741 ATTEMPTED TO CALL REPORT X2. ACCEPTING NURSE, (TOREY, RN) STATES THAT SHE IS UNABLE TO TAKE REPORT SHE HAS JUST GOTTEN AN ADMIT FROM FROM OUTPATIENT. GAVER HER MY EXTENSION AND ASK HER TO RETURN CALL WHEN ABLE TO TAKE REPORT.
--- NOTE | 2021-05-25 11:07 | NUR ---
reported to dr. gracia patient increase heart rate and acknowleged.
[2021-05-26] MEDS ORDERED: LOPRESSOR 50 MG50 MG PO (13:08)
[2021-05-26] MEDS ORDERED: BUMETANIDE1 MG PO (13:08)
[2021-05-26] MEDS ORDERED: KEPPRA 500 MG500 MG PO (13:08)
[2021-05-26] MEDS ORDERED: ELIQUIS 5 MG TAB5 MG PO (13:08)
[2021-05-26] MEDS ORDERED: DIGOXIN125 MCG PO (13:08)
[2021-05-26] MEDS ORDERED: DILTIAZEM 24HR240 M1 PO (13:08)
[2021-05-30] MEDS ORDERED: CEPHALEXIN500 M1 PO (11:28)
== END 2021-05-27 12:55 | disposition home health service (06) | DRG 100 ==
LOC: ER1 13:56 → PROG CARE 05-12 10:47 → CDU 05-12 10:47 → PROG CARE 05-12 16:19 → M/S 05-24 18:26
PROVIDERS: Emergency Medicine; Internal Medicine; ADMIT Internal Medicine
DX: G40.909 Epilepsy, unspecified, not intractable, without status epilepticus (principal); J18.9 Pneumonia, unspecified organism; G93.41 Metabolic encephalopathy; J96.01 Acute respiratory failure with hypoxia; I50.33 Acute on chronic diastolic (congestive) heart failure; I48.11 Longstanding persistent atrial fibrillation; I13.0 Hypertensive heart and chronic kidney disease with heart failure and stage 1 through stage 4 chronic kidney disease, or unspecified chronic kidney disease; J44.0 Chronic obstructive pulmonary disease with (acute) lower respiratory infection; N30.00 Acute cystitis without hematuria; N17.9 Acute kidney failure, unspecified; I42.2 Other hypertrophic cardiomyopathy; I48.92 Unspecified atrial flutter; F17.210 Nicotine dependence, cigarettes, uncomplicated; N18.30 Chronic kidney disease, stage 3 unspecified; E11.22 Type 2 diabetes mellitus with diabetic chronic kidney disease; D63.1 Anemia in chronic kidney disease; I48.0 Paroxysmal atrial fibrillation; E78.5 Hyperlipidemia, unspecified; I27.20 Pulmonary hypertension, unspecified; K21.9 Gastro-esophageal reflux disease without esophagitis; K58.9 Irritable bowel syndrome, unspecified; F03.90 Unspecified dementia, unspecified severity, without behavioral disturbance, psychotic disturbance, mood disturbance, and anxiety; E87.6 Hypokalemia; Z95.810 Presence of automatic (implantable) cardiac defibrillator; Z79.84 Long term (current) use of oral hypoglycemic drugs; Z79.899 Other long term (current) drug therapy; Z90.710 Acquired absence of both cervix and uterus; Z90.89 Acquired absence of other organs; Z98.890 Other specified postprocedural states; Z90.49 Acquired absence of other specified parts of digestive tract; Z88.0 Allergy status to penicillin; Z88.5 Allergy status to narcotic agent; Z79.82 Long term (current) use of aspirin; Z82.49 Family history of ischemic heart disease and other diseases of the circulatory system; Z87.01 Personal history of pneumonia (recurrent)
CPT/HCPCS: 36415; 36600; 51702; 70450; 71045; 80048; 80053; 80307; 81001; 82550; 82553; 82803; 82962; 83605; 83735; 83874; 83880; 84100; 84484; 85025; 85027; 87040; 87086; 93005; 94640; 94664; 94760; 96372; 96374; 96375; 96376; 97162; 97166; 99285; J0696; J1160; J1650; J1940; J1953; J2060; J2185; J7030; J7070; U0002